=== PATIENT | male | born 1990 | race Caucasian/White ===

== ENCOUNTER 2024-04-24 15:30 | Outpatient (CLI) | payer OTHER, SELFPAY ==
[2024-04-24 18:34] LABS: Viscosity Semen High Viscosity
[2024-04-24 18:44] LABS: Sperm Immotility 15 % (50-60); Sperm Non-Progressive Motility 10 % (5-10); Sperm Progressive Motility 75 % (31-34)
[2024-04-24 18:45] LABS: Pathology Referral Yes
== END 2024-04-24 15:31 | disposition home or self-care (01) ==
PROVIDERS: Visit Provider Nurse Practitioner Women's Health
DX: Z31.69 Encounter for other general counseling and advice on procreation (principal)
CPT/HCPCS: 80503; 89320

== ENCOUNTER 2024-07-21 13:00 | Outpatient (CLI) | payer OTHER, SELFPAY ==
[2024-07-21 14:07] LABS: Sperm Immotility 2 % (50-60); Sperm Non-Progressive Motility 23 % (5-10); Sperm Progressive Motility 75 % (31-34)
[2024-07-21 14:11] LABS: Epithelial Count Semen 0-4 /hpf; Red Blood Count Semen 0-4 /hpf
[2024-07-21 14:12] LABS: Pathology Referral Yes
[2024-07-21 15:10] LABS: Side 1 78; Side 2 73
[2024-07-21 15:12] LABS: Side WITHIN 10% 7
[2024-07-21 15:14] LABS: Viscosity Semen High Viscosity
== END 2024-07-21 13:01 | disposition home or self-care (01) ==
PROVIDERS: PCP Family Medicine; Visit Provider Nurse Practitioner Women's Health
DX: R86.9 Unspecified abnormal finding in specimens from male genital organs (principal)
CPT/HCPCS: 80503; 89320